=== PATIENT | female | born 1985 | race Asian ===

== ENCOUNTER 2017-09-04 13:47 | Inpatient (IN) | payer SELFPAY ==
[~2017-09-04] VITALS: Ht 165.1 cm; Wt 88.5 kg
[~2017-09-04 13:47] MED LIST: BUPIVACAINE /PF 0.25% 30 ML VIAL INJ ONE
[2017-09-04] MEDS ORDERED: OXYTOCIN/0.9 % SODIUM CHLORIDE 1,000 ML IV SCH (14:58)
[2017-09-04] MEDS: LR 1,000 ML IV SCH (15:00)
[2017-09-04] MEDS ORDERED: TERBUTALINE SULFATE 1 MG/ML VIAL SUBCUT ONE (15:00)
[2017-09-04] MEDS ORDERED: NALBUPHINE HCL 10 MG/ML AMP IM PRN (15:00)
[2017-09-04] MEDS ORDERED: DINOPROSTONE 10 MG SUPP VG ONE (15:30)
[2017-09-04 15:32] LABS: BASOPHILS % (AUTO) 0.5 % (0.0-2.0); EOSINOPHILS # (AUTO) 0.1 K/uL (0.0-0.4); EOSINOPHILS % (AUTO) 1.3 % (0.0-4.0); HEMATOCRIT 35.8 % (36-48); HEMOGLOBIN 12.2 g/dL (12.0-16.0); LYMPHOCYTES % (AUTO) 16.7 % (20.5-51.5); MEAN CORPUSCULAR HEMOGLOBIN 30 pg (27-31); MEAN CORPUSCULAR HGB CONC 34 % (32-36); MEAN CORPUSCULAR VOLUME 89 fL (79.0-98.0); MONOCYTES # (AUTO) 0.4 K/uL (0.0-1.0); MONOCYTES % (AUTO) 6.7 % (1.7-9.3); NEUTROPHILS # (AUTO) 4.4 K/uL (1.8-7.7); NEUTROPHILS % (AUTO) 74.8 % (40.0-70.0); PLATELET COUNT (AUTO) 154 K/uL (130-430); RED BLOOD CELL COUNT(AUTO) 4.05 MIL/uL (4.2-6.2); RED CELL DISTRIBUTION WIDTH 15.8 % (9.0-15.0); WHITE BLOOD COUNT (AUTO) 5.9 K/uL (4.8-10.8)
[2017-09-05] MEDS ORDERED: fentaNYL CITRATE/PF 100 MCG/2 ML AMP ONE ×2 (01:30→15:36)
[2017-09-05] MEDS ORDERED: ROPIVACAINE 0.2% 100 ML ONE ×3 (01:30→15:36)
[2017-09-05] MEDS: LR 1,000 ML IV SCH ×2 (05:17→13:30)
[2017-09-05] MEDS ORDERED: OXYTOCIN/0.9 % SODIUM CHLORIDE 1,000 ML IV SCH (05:19)
[2017-09-05] MEDS ORDERED: AMPICILLIN SODIUM 2 GM in NS 100 ML IV ONE (08:30)
[2017-09-05 10:16] VITALS: BP_SYST 110
[2017-09-05] MEDS: AMPICILLIN SODIUM 1 GM in NS 50 ML IV SCH ×2 (13:32→17:50)
[2017-09-05] MEDS ORDERED: LR 500 ML IV ONE (13:34)
[2017-09-05] MEDS ORDERED: FENT2mCg/mL-ROPIVA0.2%/NS EPID 150 ML EP SCH (13:45)
[2017-09-05] MEDS ORDERED: ACETAMINOPHEN 500 MG TABLET ONE (18:53)
[2017-09-05] MEDS ORDERED: ACETAMINOPHEN 500 MG TABLET PO ONE (19:00)
[2017-09-05] MEDS ORDERED: TEMAZEPAM 15 MG CAPSULE PO PRN (21:00)
[2017-09-05] MEDS ORDERED: CEFAZOLIN 2 GM IVPB PREMIX 50 ML IV ONE (21:15)
[2017-09-05] MEDS ORDERED: OXYTOCIN/0.9 % SODIUM CHLORIDE 1,000 ML IV ONE (21:43)
[2017-09-05] MEDS ORDERED: LANOLIN 7 GM OINT. TP PRN (21:45)
[2017-09-05] MEDS ORDERED: MEASLES,MUMPS&RUBELLA VACC/PF 12500 UNIT/0.5 ML VIAL SUBQ PRN (21:45)
[2017-09-05] MEDS ORDERED: OXYCODONE/ACETAMINOPHEN 5-325 TABLET PO PRN (21:45)
[2017-09-05] MEDS ORDERED: SIMETHICONE 80 MG TAB.CHEW PO PRN (21:45)
[2017-09-05] MEDS ORDERED: HYDROcodone/ACETAMIN 5-325 MG TAB (NORCO/ VICODIN) PO PRN (21:45)
[2017-09-05] MEDS ORDERED: ANUSOL 1 EA SUPP.RECT (PREPARATION H) RC PRN (21:45)
[2017-09-05] MEDS ORDERED: LR 1,000 ML IV SCH (22:21)
[2017-09-05] MEDS ORDERED: DIPHENHYDRAMINE INJ 50 MG/ML VIAL IM PRN (22:30)
[2017-09-05] MEDS ORDERED: NALOXONE HCL 0.4 MG/ML AMP (NARCAN) IVP PRN (22:30)
[2017-09-05] MEDS ORDERED: MORPHINE SULFATE 10MG/10ML PF AMP EP SCH (22:30)
[2017-09-05] MEDS ORDERED: KETOROLAC TROMETHAMINE 60 MG/2 ML VIAL IM PRN (22:30)
[2017-09-05] MEDS ORDERED: ONDANSETRON HCL 4 MG/2 ML VIAL IVP PRN ×2 (22:30)
[2017-09-05] MEDS ORDERED: LIDOCAINE 2%, 20 ML MDV INJ ONE (23:00)
[2017-09-05] MEDS ORDERED: MORPHINE SULFATE 10MG/10ML PF AMP EP ONE (23:00)
[2017-09-05] MEDS ORDERED: LR 1,000 ML IV.SOLN IV ONE (23:00)
[2017-09-05] MEDS ORDERED: NS IRRIG SOLN 1000 ML IR ONE (23:00)
[2017-09-05] MEDS ORDERED: OXYTOCIN 10 UNIT/ML VIAL IV ONE (23:00)
[2017-09-05] MEDS ORDERED: MEPERIDINE HCL/PF 25 MG/ML DISP.SYRIN ONE (23:11)
[2017-09-05] MEDS ORDERED: MEPERIDINE HCL/PF 25 MG/ML DISP.SYRIN IM ONE (23:15)
[2017-09-05 23:20] VITALS: BP_SYST 117
[2017-09-06] MEDS: CEFAZOLIN 1 GM IVPB PREMIX 50 ML IV SCH ×3 (00:07→12:19)
[2017-09-06 07:16] LABS: BASOPHILS % (AUTO) 0.2 % (0.0-2.0); EOSINOPHILS # (AUTO) 0.1 K/uL (0.0-0.4); EOSINOPHILS % (AUTO) 0.7 % (0.0-4.0); HEMATOCRIT 31.5 % (36-48); HEMOGLOBIN 10.7 g/dL (12.0-16.0); LYMPHOCYTES # (AUTO) 0.7 K/uL (1.0-5.5); LYMPHOCYTES % (AUTO) 6.9 % (20.5-51.5); MEAN CORPUSCULAR HEMOGLOBIN 30 pg (27-31); MEAN CORPUSCULAR HGB CONC 34 % (32-36); MEAN CORPUSCULAR VOLUME 88 fL (79.0-98.0); MONOCYTES # (AUTO) 0.4 K/uL (0.0-1.0); MONOCYTES % (AUTO) 3.5 % (1.7-9.3); NEUTROPHILS # (AUTO) 9.5 K/uL (1.8-7.7); NEUTROPHILS % (AUTO) 88.7 % (40.0-70.0); PLATELET COUNT (AUTO) 115 K/uL (130-430); RED BLOOD CELL COUNT(AUTO) 3.57 MIL/uL (4.2-6.2); RED CELL DISTRIBUTION WIDTH 15.6 % (9.0-15.0)
[2017-09-06 07:23] LABS: WHITE BLOOD COUNT (AUTO) 10.7 K/uL (4.8-10.8)
[2017-09-06] MEDS: IBUPROFEN 600 MG TABLET PO SCH ×2 (12:19→18:21)
[2017-09-06] MEDS: OXYCODONE/ACETAMINOPHEN 5-325 TABLET PO PRN (23:55)
[2017-09-06] MEDS: DOCUSATE SODIUM 100 MG CAPSULE PO PRN (23:55)
[2017-09-07] MEDS: IBUPROFEN 600 MG TABLET PO SCH ×3 (00:05→12:22)
[2017-09-07] MEDS: OXYCODONE/ACETAMINOPHEN 5-325 TABLET PO PRN ×4 (04:05→16:18)
[2017-09-07] MEDS: DOCUSATE SODIUM 100 MG CAPSULE PO PRN (12:22)
[2017-09-08] MEDS: OXYCODONE/ACETAMINOPHEN 5-325 TABLET PO PRN ×3 (06:05→11:30)
[2017-09-08] MEDS: DOCUSATE SODIUM 100 MG CAPSULE PO PRN (06:05)
[2017-09-08] MEDS: IBUPROFEN 600 MG TABLET PO SCH ×3 (06:05→11:33)
== END 2017-09-08 18:00 | disposition home or self-care (01) | DRG 766 ==
LOC: SPU 13:47
PROVIDERS: ADMIT Obstetrics & Gynecology; ATTEND Obstetrics & Gynecology
PROC: 10D00Z1 Extraction of Products of Conception, Low, Open Approach (ICD-10-PCS; 2017-09-05)
PROC: 3E033VJ Introduction of Other Hormone into Peripheral Vein, Percutaneous Approach (ICD-10-PCS; principal; 2017-09-05 21:30)
DX: O62.2 Other uterine inertia (principal); Z37.0 Single live birth; Z3A.39 39 weeks gestation of pregnancy
CPT/HCPCS: 36415; 85025; 86886; 86900; 86901; J0290; J0690; J1200; J1885; J2001; J2175; J2274; J2590; J2795; J3010; J3490; J7120